=== PATIENT | female | born 1990 | race Two or more races ===

== ENCOUNTER 2021-09-20 19:52 | Emergency (ER) | payer OTHER ==
[~2021-09-20] VITALS: Ht 154.9 cm; Wt 63.5 kg
== END 2021-09-20 22:28 | disposition home or self-care (01) ==
LOC: ER 19:52
DX: M54.89 Other dorsalgia (principal); M54.2 Cervicalgia; R55 Syncope and collapse; M62.838 Other muscle spasm

== ENCOUNTER 2023-07-18 12:09 | Outpatient (CLI) | payer OTHER | END 2023-07-18 13:13 | disposition home or self-care (01) | LOC: NST 12:09 | PROVIDERS: ATTEND Obstetrics & Gynecology Maternal & Fetal Medicine | DX: Z34.83 Encounter for supervision of other normal pregnancy, third trimester (principal) ==

== ENCOUNTER 2023-07-18 13:57 | Inpatient (IN) | payer OTHER ==
[~2023-07-18] VITALS: Ht 154.9 cm; Wt 77.1 kg
[2023-07-26] MEDS ORDERED: PRENATAL TABLE1 EAC1 PO (17:07)
[2023-07-26 17:14] LABS: HEMATOCRIT 37.8 % (36.0-45.00); HEMOGLOBIN 13.3 g/dL (12.0-15.00); MEAN CELL VOLUME 97.8 fL (80.00-100.00); MEAN CORPUSCULAR HEMOGLOBIN 34.3 pg (27.00-32.0); MEAN CORPUSCULAR HGB CONC 35.1 g/dl (32.0-36.0); PLATELET COUNT 186 K/uL (150-450); RED BLOOD COUNT 3.86 M/uL (4.00-6.00); RED CELL DISTRIBUTION WIDTH 13.2 % (11.5-14.5)
[2023-07-26 17:18] LABS: PH,URINE 6.5 (5.0-8.0); URINE APPEARANCE Clear; URINE BILIRRUBIN Negative (NEGATIVE); URINE BLOOD Negative; URINE COLOR Yellow; URINE GLUCOSE Negative (NEGATIVE); URINE LEUKOCYTE Negative; URINE NITRATE Negative; URINE PROTEIN Trace (NEGATIVE)
[2023-07-26 17:22] LABS: URINE BACTERIA 1489.1 uL (0.0-1933); URINE EPITHELIAL CELLS 48.9 uL (0.0-38.8); URINE RBC 5.7 uL (0.0-20.8); URINE WBC 29.2 uL (0.0-23.2)
[2023-07-26 17:26] LABS: INR < 0.93; PARTIAL THROMBOPLASTIN TIME 26.5 SECONDS (22.0-34.0); PROTHROMBIN TIME 9.7 SECONDS (9.0-11.5)
[2023-07-26 17:32] LABS: BILIRUBIN TOTAL 0.4 mg/dL (0.3-1.2); CALCIUM 8.9 mg/dL (8.5-10.1); CREATININE SERUM 0.48 mg/dL (0.55-1.02); GFR 148.04; GLOBULINA 3.5 G/DL (2.4-3.5); POTASSIUM 4.01 mEq/L (3.5-5.1); TOTAL PROTEIN 6.5 gm/dL (6.4-8.2)
[2023-07-28 06:48] LABS: HEMATOCRIT 34.3 % (36.0-45.00); MEAN CELL VOLUME 98.2 fL (80.00-100.00); MEAN CORPUSCULAR HEMOGLOBIN 34.5 pg (27.00-32.0); MEAN CORPUSCULAR HGB CONC 35.2 g/dl (32.0-36.0); PLATELET COUNT 175 K/uL (150-450); RED BLOOD COUNT 3.49 M/uL (4.00-6.00)
[2023-07-28 07:21] LABS: ALBUMIN 2.3 gm/dL (3.4-5.0); BILIRUBIN TOTAL 0.45 mg/dL (0.3-1.2); CALCIUM 8.5 mg/dL (8.5-10.1); CREATININE SERUM 0.48 mg/dL (0.55-1.02); GFR 148.04; GLOBULINA 2.7 G/DL (2.4-3.5); POTASSIUM 3.52 mEq/L (3.5-5.1)
== END 2023-07-29 15:37 | disposition home or self-care (01) | DRG 807 ==
LOC: LDR 07-26 16:36 → OB/GYN 07-27 20:14
PROVIDERS: ADMIT Obstetrics & Gynecology Gynecology; ATTEND Obstetrics & Gynecology Gynecology
PROC: 3E0P7VZ Introduction of Hormone into Female Reproductive, Via Natural or Artificial Opening (ICD-10-PCS; 2023-07-26)
PROC: 4A1HXCZ Monitoring of Products of Conception, Cardiac Rate, External Approach (ICD-10-PCS; 2023-07-26)
PROC: 10E0XZZ Delivery of Products of Conception, External Approach (ICD-10-PCS; principal; 2023-07-27)
PROC: 0KQM0ZZ Repair Perineum Muscle, Open Approach (ICD-10-PCS; 2023-07-27)
PROC: 3E033VJ Introduction of Other Hormone into Peripheral Vein, Percutaneous Approach (ICD-10-PCS; 2023-07-27)
DX: O70.1 Second degree perineal laceration during delivery (principal); Z37.0 Single live birth; Z3A.39 39 weeks gestation of pregnancy; Z20.822 Contact with and (suspected) exposure to COVID-19

== ENCOUNTER 2023-07-25 12:50 | Outpatient (CLI) | payer OTHER ==
[2023-07-26] MEDS ORDERED: PRENATAL TABLE1 EAC1 PO (17:07)
== END 2023-07-25 14:22 | disposition home or self-care (01) ==
LOC: NST 12:50
PROVIDERS: ATTEND Obstetrics & Gynecology Maternal & Fetal Medicine
DX: Z34.83 Encounter for supervision of other normal pregnancy, third trimester (principal)